=== PATIENT | male | born 1970 | race Caucasian/White ===

== ENCOUNTER 2020-09-29 17:26 | Emergency (ER) | payer MEDICAID, OTHER ==
[~2020-09-29] VITALS: Ht 180.3 cm; Wt 83.1 kg
--- NOTE | 2020-09-29 17:33 | NUR ---
DELIVERY AIDE: PLACED ON 2L NC IN TRIAGE
--- NOTE | 2020-09-29 18:57 | NUR ---
IV ESTABLISHED. FLUIDS INFUSING.
--- NOTE | 2020-09-29 18:58 | NUR ---
REPORT TO JOE
[2020-09-29] MEDS ORDERED: LORazepam 2 MG/ML, 1ML IVPush PRN (19:00)
[2020-09-29] MEDS ORDERED: LORazepam 2 MG/ML, 1ML IVPush ONE (19:00)
[2020-09-29] MEDS ORDERED: SODIUM CHLORIDE 0.9% 1,000ML IVBOLUS ONE (19:00)
[2020-09-29] MEDS ORDERED: ONDANSETRON 2MG/ML, 2ML IVPush ONE (19:00)
--- NOTE | 2020-09-29 19:03 | NUR ---
REPORT FROM KENDRA AMOR
[2020-09-29 19:23] LABS: BASOPHILS % (AUTO) 1 % (0-1); EOSINOPHILS % (AUTO) 0 % (1-7); LYMPHOCYTES % (AUTO) 28 % (22-44); MEAN CORPUSCULAR HEMOGLOBIN 33.8 pg (27.5-34.5); MEAN CORPUSCULAR HGB CONC 34.3 g/dL (33.2-36.2); MEAN PLATELET VOLUME 8.4 fL (7.4-10.4); MONOCYTES % (AUTO) 15 % (2-9); NEUTROPHILS % (AUTO) 56 % (42-75); PLATELET COUNT 144 x10^3/uL (130-400); RED CELL DISTRIBUTION WIDTH 13.3 % (9.4-14.8)
[2020-09-29 19:24] LABS: MD NO
[2020-09-29 19:31] LABS: ALBUMIN 4.4 g/dL (3.4-5.0); ANION GAP 8 mmol/L (5-15); CALCIUM 8.5 mg/dL (8.5-10.1); CHLORIDE 107 mmol/L (98-107)
[2020-09-29] MEDS ORDERED: ONDANSETRON 2MG/ML, 2ML ONE (19:39)
[2020-09-29] MEDS ORDERED: LORazepam 2 MG/ML, 1ML ONE ×2 (19:40→21:09)
[2020-09-29 19:43] LABS: ALANINE AMINOTRANSFERASE 110 U/L (12-78); ALKALINE PHOSPHATASE 83 U/L (45-117); BILIRUBIN,TOTAL 1.7 mg/dL (0.2-1.0); CREATININE 0.82 mg/dL (0.7-1.3); TOTAL PROTEIN 7.9 g/dL (6.4-8.2)
--- NOTE | 2020-09-29 19:51 | NUR ---
RA 02 OF 83%, PT PLACED ON 2L NC, NOW 98%
[2020-09-29] MEDS ORDERED: CHLORDIAZEPOXIDE 25 MG CAPSULE PO ONE (20:00)
[2020-09-29] MEDS ORDERED: CHLORDIAZEPOXIDE 25 MG CAPSULE ONE (20:29)
[2020-09-29] MEDS ORDERED: ZIPRASIDONE 20 MG INJ IM ONE ×2 (22:57→23:00)
--- NOTE | 2020-09-29 23:10 | NUR ---
TASK RN: PT RESTING ON [employer], PROVIDED WATER REQ. NO FURTHER NEEDS AT THIS TIME.
--- NOTE | 2020-09-29 23:44 | NUR ---
TP: PT TO BE ADMITTED BUT PT HAS [facility]. SPOKE [facility] AT [facility] TRANSFER [place]. CHART AND FACE SHEET FAXED TO TRANSFER CENTER. IMAGES PUSHED. UPDATED. WAITING TO HEAR FROM [facility].
--- NOTE | 2020-09-30 01:03 | NUR ---
PT SLEEPING, AWAKENS EASILY. UPDATED ON POC.
--- NOTE | 2020-09-30 01:12 | NUR ---
TP: PT ACCEPTED BY [facility] IN TRANSFER CENTER. ACCEPTING DR IS DR MCDOWELL. PT TO BE TRANSPORTED TO [facility]. JOE AMOR NOTIFIED TO CALL REPORT TO LAURA AMOR. [facility] FAXED. WILL CALL TO VERIFY RECIEPT.
--- NOTE | 2020-09-30 02:05 | NUR ---
PT SLEEPING, RESP EVEN AND UNLABORED.
--- NOTE | 2020-09-30 02:17 | NUR ---
REPORT GIVEN TO LAURA AMOR AT [facility]. PT TO BE DIRECT ADMIT TO [facility] [id number]. MEDICAL TRANSPORT ETA [phone]. PT AWARE OF POC, ALL QUESTIONS ANSWERED.
--- NOTE | 2020-09-30 03:08 | NUR ---
REPORT GIVEN TO BOY AMOR
[2020-09-30] MEDS ORDERED: LORazepam 2 MG/ML, 1ML ONE ×3 (03:11→05:46)
--- NOTE | 2020-09-30 03:15 | NUR ---
Report from Danielle Staton. First contact, pt tremulous HR 110, sweaty forehead. 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 o2 sat 95%2L. NC. Requested ativan from dr blair, admin per emar. On cont pulse ox, b/p 116/74 hr 92.
--- NOTE | 2020-09-30 03:25 | NUR ---
Pt car in ER lot, provided security; Al with make, model and lic plate. Informed security pt will be tx to [facility] for several days.
[2020-09-30] MEDS ORDERED: LORazepam 2 MG/ML, 1ML IVPush ONE (03:30)
--- NOTE | 2020-09-30 03:30 | NUR ---
TP: [facility] CALLED ABOUT ETA FOR TRANSFER. RN TOLD THAT ETA IS CHANGED TO 4:00 OR 4:15 WHEN ANOTHER UNIT IS AVAILIBLE.
--- NOTE | 2020-09-30 03:53 | NUR ---
Pt sleeping, RR equal and unlabored. VSS. Waiting for EMS tx to [facility] approx 4am.
--- NOTE | 2020-09-30 04:49 | NUR ---
Pt still not picked up by [facility], repeat call for update placed by [facility].
--- NOTE | 2020-09-30 04:51 | NUR ---
Update ETA for [facility] is 0600am, CN informed. Will continue to monitor patient.
--- NOTE | 2020-09-30 04:57 | NUR ---
ERP informed re: delay in pt being tx to [facility]. ERP to order additional benzo and ativan prn for tremors. Pt updated re: delay and POC. Increase in tremors, pt states he is starting to feel more shakey. HR 100, bilat hand tremors.
[2020-09-30] MEDS ORDERED: MAGNESIUM SULFATE 1 GM, THIAMINE 100 MG, FOLIC ACID 1 MG, MVI ADULT 10 ML in SODIUM CHL... IV ONE (05:00)
[2020-09-30] MEDS: LORazepam 2 MG/ML, 1ML IVPush PRN ×2 (05:05→05:51)
--- NOTE | 2020-09-30 05:07 | NUR ---
Requested banana bag from pharmacy. Ativan per order, pt remains alert and oriented. VSS, placed on supplamental o2 2L. Will continue to monitor.
--- NOTE | 2020-09-30 05:42 | NUR ---
Updated Danielle Zamora at [facility] [phone] re: delay and updated report with meds given.
--- NOTE | 2020-09-30 05:51 | NUR ---
Report to [facility] medic crew unit 21. VSS upon tx. All belongings sent with pt, security aware of pt car.
[2020-09-30 05:52] VITALS: BP 122/74
== END 2020-09-30 05:57 ==
LOC: ED 20:50
DX: F10.239 Alcohol dependence with withdrawal, unspecified (principal); F10.229 Alcohol dependence with intoxication, unspecified; R07.9 Chest pain, unspecified; R00.0 Tachycardia, unspecified; Y90.0 Blood alcohol level of less than 20 mg/100 ml
CPT/HCPCS: 36415; 71045; 80053; 80320; 83735; 84443; 85025; 96361; 96365; 96372; 96375; 96376; 99285; J2060; J2405; J3411; J3475; J3486; J7030; G0480